=== PATIENT | female | born 1980 | race Caucasian/White ===

== ENCOUNTER 2023-03-23 14:59 | Emergency (ER) | payer OTHER, SELFPAY ==
[2023-03-23] VITALS (24 sets, daily range): BP systolic 148–192; BP diastolic 91–116; PULSE 63–87; RESP 18; TEMP 36.9; O2SAT 96–99; BMI 32.0
--- NOTE | 2023-03-23 15:14 | ED.GENADULT ---
HPI - General Adult General Chief complaint: Hypertension Stated complaint: 170 BP post-op Time Seen by Provider: 03/23/23 15:00 History of Present Illness HPI narrative: Patient had hysterectomy on Friday. She felt dizzy today so checked her BP and noted high numbers. Also states she feels shaky. She reports pain only with movement so is no longer taking anything . 42-year-old woman presenting to the emergency department concern of high blood pressure and feeling unsteady. No headache. No new visual disturbance. [place] generally well upon waking this morning. Was awake around 530 - 540 than went back to sleep after relocating around 7:00 a.m.. Probably waking around 10 and subsequently noted herself to be with symptoms as above. Symptoms present perhaps for around 4 hours prior to arrival in the emergency department. No headache. No facial pain or pressure. Reports a history of white coat hypertension. On preop was noted to be 140s over uncertain. Has historically been recommended just to keep an eye on it she says. Later notes that she has been having some eye issue but when it was evaluated thought to possibly be related to more remote concussion. Six months ago and has developed some degree of what seems to be described as tinnitus. The feeling that she is having is later clarified to maybe when she gets off a boat. Not exactly dizzy Since surgery has been noting that everything tastes terrible including water. Abdominal pain is much less and really only present at movement now. This was laparoscopic hysterectomy. No unusual discharge. No bleeding. Related Data Previous Rx's Medication Instructions Recorded meclizine 25 mg tablet 25 mg PO TID PRN #15 tabs 03/23/23 Allergies Allergy/AdvReac Type Severity Reaction Status Date / Time No Known Drug Allergies Allergy Verified 03/23/23 15:06 Review of Systems Status of ROS: Reports: 6 or more systems reviewed and unremarkable except as noted in History and below Exam Narrative: Exam Narrative: Pleasant. NAD. Skin is warm and dry. Points of incision/laparoscopic approach in the abdomen are still covered with Steri-Strips and without surrounding inflammatory changes. No drainage. Cranial nerves 2-12 are intact. Pupils are 3 mm and equal and briskly reactive and accommodating. No nystagmus. Extraocular movements are full. TMs are clear. No facial swelling erythema or apparent tenderness. Head is atraumatic. Neck is supple with strong and equal carotid upstroke. No bruits. Heart in regular rate and rhythm with a 2/6 right-sided holosystolic murmur --this seems to have been unknown prior. Extremities with good strength and sensation intact. No edema. Abdomen is soft and tender in the just left of center suprapubic area but I think not unexpectedly. No peritoneal signs. Const: Vital Signs, click to edit/add: Vital Signs - 24 hr 03/23/23 15:06 03/23/23 15:35 03/23/23 15:36 Temperature 98.4 F Pulse Rate 77 73 Pulse Rate [Pulse Oximeter] 81 Respiratory Rate 18 Blood Pressure 189/108 H Blood Pressure [Ri ght Upper Arm] 192/116 H Pulse Oximetry 99 99 98 Oxygen Delivery Me od Room Air 03/23/23 15:45 03/23/23 16:00 03/23/23 16:05 Temperature Pulse Rate 69 73 81 Pulse Rate [Pulse Oximeter] Respiratory Rate Blood Pressure 152/102 H Blood Pressure [Ri ght Upper Arm] Pulse Oximetry 98 99 99 Oxygen Delivery Me thod 03/23/23 16:06 03/23/23 16:15 03/23/23 16:30 Temperature Pulse Rate 69 76 74 Pulse Rate [Pulse Oximeter] Respiratory Rate Blood Pressure Blood Pressure [Ri ght Upper Arm] Pulse Oximetry 98 96 99 Oxygen Delivery Me thod 03/23/23 16:32 03/23/23 16:45 03/23/23 17:00 Temperature Pulse Rate 76 71 87 Pulse Rate [Pulse Oximeter] Respiratory Rate Blood Pressure 165/101 H Blood Pressure [Ri ght Upper Arm] Pulse Oximetry 97 98 99 Oxygen Delivery Me thod 03/23/23 17:01 03/23/23 17:15 03/23/23 17:30 Temperature Pulse Rate 80 78 71 Pulse Rate [Pulse Oximeter] Respiratory Rate Blood Pressure 172/109 H Blood Pressure [Ri ght Upper Arm] Pulse Oximetry 98 99 99 Oxygen Delivery Me thod 03/23/23 17:32 03/23/23 17:45 03/23/23 18:00 Temperature Pulse Rate 77 63 69 Pulse Rate [Pulse Oximeter] Respiratory Rate Blood Pressure 155/91 H Blood Pressure [Ri ght Upper Arm] Pulse Oximetry 98 98 97 Oxygen Delivery Me thod 03/23/23 18:01 03/23/23 18:02 03/23/23 18:15 Temperature Pulse Rate 71 68 81 Pulse Rate [Pulse Oximeter] Respiratory Rate Blood Pressure 148/98 H Blood Pressure [Ri ght Upper Arm] Pulse Oximetry 97 98 98 Oxygen Delivery Me thod 03/23/23 18:30 03/23/23 18:31 03/23/23 18:32 Temperature Pulse Rate 73 74 74 Pulse Rate [Pulse Oximeter] Respiratory Rate Blood Pressure 148/96 H Blood Pressure [Ri ght Upper Arm] Pulse Oximetry 96 97 97 Oxygen Delivery Me thod Documenting provider has reviewed patient's vital signs: yes Course Vital Signs Vital signs: Initial Vital Signs Temperature 98.4 F 03/23/23 15:06 Temperature Source Temporal Artery Scan 03/23/23 15:06 Pulse Rate 81 03/23/23 15:06 Respiratory Rate 18 03/23/23 15:06 Blood Pressure 192/116 H 03/23/23 15:06 Blood Pressure Mean 141 H 03/23/23 15:06 Pulse Oximetry 99 03/23/23 15:06 Oxygen Delivery Method Room Air 03/23/23 15:06 Vital Signs Temperature 98.4 F 03/23/23 15:06 Pulse Rate 81 03/23/23 15:06 Respiratory Rate 18 03/23/23 15:06 Blood Pressure 192/116 H 03/23/23 15:06 Pulse Oximetry 99 03/23/23 15:06 Oxygen Delivery Method Room Air 03/23/23 15:06 Temperature 98.4 F 03/23/23 15:06 Pulse Rate 74 03/23/23 18:32 Respiratory Rate 18 03/23/23 15:06 Blood Pressure 148/96 H 03/23/23 18:31 Pulse Oximetry 97 03/23/23 18:32 Oxygen Delivery Method Room Air 03/23/23 15:06 Medications Administered Medications: Discontinued Medications Generic Name Dose Route Start Last Admin Trade Name Freq PRN Reason Stop Dose Admin Sodium Chloride 1,000 mls @ 1,000 mls/hr 03/23/23 16:18 03/23/23 18:00 0.9 % Sodium Chloride 1000 Ml IV 03/23/23 17:17 Infused .Q1H ONE Infusion Lorazepam 0.5 mg 03/23/23 17:05 03/23/23 17:15 Lorazepam 2 Mg/Ml Inj IVP 03/23/23 17:06 0.5 mg ONCE ONE Administration Medical Decision Making MDM Narrative Medical decision making narrative: Attempting to clarify symptoms that seems less dizziness and more of a lightheadedness. A little challenging to categorize. No other symptoms apparent. Differential would include CVA, headache, anxiety, symptomatic hypertension though does not otherwise seem encephalopathic, sinus disease, dysrhythmia, dehydration, anemia, hypoglycemia, electrolyte abnormality, labyrinthitis or inner ear disease otherwise. I would like place IV hydration as I do not think she has been keeping up with fluids given the this taste that she described for even water. Sinus disease could result in poor taste to fluid/food. Test with lorazepam. It does appear as though blood pressures have been driven somewhat by anxiety historically. Perhaps this would also help if more of an inner ear issue. There is this apparently new systolic murmur. Check BNP and chest x-ray. Chest x-ray with normal cardiac silhouette and no other indication of dysfunction. Differential does include though ischemic CVA. MRI is not available over weekend. CT imaging I suspect would be rather low yield. Labs are overall reassuring. No other indication of hypertensive emergency. While still elevated particularly notably the diastolic, seems to have improved both pressures as well as symptoms with Ativan. Clarified that symptoms resolve when she closes her eyes and when she holds still. I would say this is reassuring. Lab Data Lab results reviewed: Yes I reviewed the patient's lab results Labs: Lab Results 03/23/23 Range/Units 16:04 WBC 7.04 (4.50-11.00) K/uL RBC 4.36 (4.00-5.20) m/uL Hgb 13.0 (12.0-16.0) gm/dL Hct 39.5 (33.0-51.0) % MCV 91 (80-100) fL MCH 30 (26-34) pg MCHC 33 (32-36) gm/dL RDW Coeff of Mario 12.6 (11.5-15.5) % Plt Count 223 (140-440) K/uL Neut % (Auto) 55.5 (42.0-72.0) % Lymph % (Auto) 35.9 (20-44) % [place] % (Auto) 7.5 (0.0-11.0) % Eos % (Auto) 0.6 (0.0-7.0) % Baso % (Auto) 0.4 (0.0-3.0) % Neut # (Auto) 3.90 (1.7-7.0) K/uL Lymph # (Auto) 2.53 (0.90-2.90) K/uL [place] # (Auto) 0.50 (0.00-0.90) K/UL Eos # (Auto) 0.04 (0.00-0.50) K/uL Baso # (Auto) 0.03 (0.00-0.30) K/uL Abs Immat Gran (auto) 0.01 (0.00-0.30) K/uL Imm/Tot Granulo (auto) 0.1 % Sodium 139 (135-149) mmol/L Potassium 3.6 (3.6-5.1) mmol/L Chloride 107 (96-114) mmol/L Carbon Dioxide 26 (20-32) mmol/L Anion Gap 6 L (7-15) mEq/L BUN 8 (5-24) mg/dL Creatinine 0.7 (0.5-1.5) mg/dL Estimated Creat Clear 81.96 Estimated GFR 110 ml/min Glucose 102 (60-115) mg/dL Calcium 8.4 (8.4-10.6) mg/dL NT-Pro-B Natriuret Pep 166 pg/mL TSH 2.920 (0.270-4.20) uIU/mL SARS-CoV-2 (PCR) Negative SARS-CoV-2 (Negative) Influenza Type A (PCR) Negative PCR FLU A (Negative) Influenza Type B (PCR) Negative PCR FLU B (Negative) ECG Data Attestation: I personally reviewed and interpreted this ECG as follows: (Normal sinus rhythm rate of 76 without ischemic changes) Discharge Plan Discharge Clinical Impression: [place], Elevated blood pressure, situational Patient Disposition: Home w/ Parent or Adult Condition: Improved Additional Instructions: Focus on hydration. Be seen for persistent dizziness that is not resolving when you are still or when you close your eyes. Marked increase in lightheadedness particularly accompanied by chest pain or shortness of breath. Be seen for new focal weakness. Visual changes. Severe headache. I would consider taking meclizine 3 times daily over the next 3-5 days if it is not too sedating. Check your blood pressure approximately once daily after period of relaxation to get maybe 4 readings a week over the next week or 2. Please call tomorrow to schedule follow-up with your primary care provider to discuss further. Activity Level: No Restrictions Discharge Diet: Regular Prescriptions: New meclizine 25 mg tablet 25 mg PO TID PRNQty: 15 1RF Follow Up/Referrals: Provider,Not a Local [Primary Care Provider] - Stand Alone Forms: [employer] Info Instructions
[2023-03-23 16:14] LABS: Basophils Absolute Auto 0.03 K/uL (0.00-0.30); Basophils Percent Auto 0.4 % (0.0-3.0); Eosinophils Absolute Auto 0.04 K/uL (0.00-0.50); Eosinophils Percent Auto 0.6 % (0.0-7.0); Hematocrit 39.5 % (33.0-51.0); Immature Granulocytes Abs Auto 0.01 K/uL (0.00-0.30); Immature Granulocytes Pct Auto 0.1 %; Lymphocytes Absolute Auto 2.53 K/uL (0.90-2.90); Lymphocytes Percent Auto 35.9 % (20-44); Mean Corpuscular HGB Conc 33 gm/dL (32-36); Mean Corpuscular Hemoglobin 30 pg (26-34); Mean Corpuscular Volume 91 fL (80-100); Monocytes Percent Auto 7.5 % (0.0-11.0); Neutrophils Percent Auto 55.5 % (42.0-72.0); Platelet Count* 223 K/uL (140-440); RDW Coefficient of Variation % 12.6 % (11.5-15.5); Red Blood Count 4.36 m/uL (4.00-5.20); White Blood Count* 7.04 K/uL (4.50-11.00)
[2023-03-23 16:16] LABS: Slide Review Reflex No
[2023-03-23] MEDS: 0.9 % SODIUM CHLORIDE 1000 ml 1,000 ML IV (16:24)
[2023-03-23 16:25] LABS: Chloride* 107 mmol/L (96-114); Potassium* 3.6 mmol/L (3.6-5.1); Sodium* 139 mmol/L (135-149)
[2023-03-23 16:28] LABS: Anion Gap 6 mEq/L (7-15); Blood Urea Nitrogen* 8 mg/dL (5-24); Carbon Dioxide* 26 mmol/L (20-32); Creatinine* 0.7 mg/dL (0.5-1.5); Est. Creatinine Clearance* 81.96; Estimated Glomerular Filt Rate 110 ml/min; Glucose* 102 mg/dL (60-115)
[2023-03-23 16:29] LABS: Calcium* 8.4 mg/dL (8.4-10.6)
[2023-03-23 16:39] LABS: NT Pro B Type NatriureticPept* 166 pg/mL
[2023-03-23 16:50] LABS: PCR FLU A Negative PCR FLU A (Negative); PCR FLU B Negative PCR FLU B (Negative)
[2023-03-23 16:54] LABS: SARS PCR* Negative SARS-CoV-2 (Negative)
--- NOTE | 2023-03-23 17:04 | CRLHL7_ITS ---
For Patients: As a result of the Century Cures Act, medical imaging exams and procedure reports are released immediately into your electronic medical record. You may view this report before your referring provider. If you have questions, please contact your health care provider. INDICATION: New cardiac murmur. Hypertension. TECHNIQUE: AP chest. COMPARISON: None. FINDINGS: Clear lungs. Normal heart size and pulmonary vascularity. Normal included skeleton. IMPRESSION: Negative chest. Dictated by Issa Samayoa MD @ 03/23/2023 6:17:48 PM (Electronically Signed)
[2023-03-23] MEDS: LORazepam 2 MG/ML inj 0.5 MG IVP (17:15)
== END 2023-03-23 18:47 | disposition home or self-care (01) ==
PROVIDERS: Emergency Provider Family Medicine
DX: R03.0 Elevated blood-pressure reading, without diagnosis of hypertension (principal); R53.81 Other malaise
CPT/HCPCS: 36415; 71045; 80048; 83880; 84443; 85025; 87631; 93005; 94761; 96374; 99284; 99285; J2060; J7030